=== PATIENT | male | born 1950 | race Caucasian/White ===

== ENCOUNTER → 2018-04-23 | Outpatient (CLI) | payer MEDICARE, BC ==
[2018-04-23 17:24] LABS: Anisocytosis Moderate; Basophils % (A) 0 %; Eosinophils # (A) 0.1 k/uL (0-0.7); Eosinophils % (A) 1 %; HCT 26.3 % (39.0-53.0); HGB 8.6 gm/dL (13.0-17.5); Hypochromasia Slight; Lymphocytes # (A) 1.5 k/uL (1.0-4.8); Lymphocytes % (A) 20 %; MCH 34.1 pg (25.0-35.0); MCHC 32.5 g/dL (31.0-37.0); MCV 104.9 fL (80.0-100.0); Macrocytosis Marked; Mean Platelet Volume 8.1; Monocytes % (A) 13 %; Neutrophils # (A) 4.6 k/uL (1.3-7.7); Neutrophils % (A) 62 %; Platelet Count 254 k/uL (150-450); Poikilocytosis Slight; RBC 2.51 m/uL (4.30-5.90); RDW 22.2 % (11.5-15.5); WBC 7.4 k/uL (3.8-10.6)
[2018-04-23 17:58] LABS: Large Platelets Present; Poikilocytosis (M) Present; Polychromasia Present
[2018-04-23 17:59] LABS: Ovalocytes Present
[2018-04-24 02:57] LABS: Albumin 4.2 g/dL (3.80-4.90); Anion Gap 8.2 mmol/L (4.00-12.00); Calcium 8.6 mg/dL (8.7-10.3); Carbon Dioxide 28.8 mmol/L (21.6-31.8); Globulin 1.4 g/dL (1.6-3.3); Potassium 4.2 mmol/L (3.5-5.5); Total Bilirubin 1.4 mg/dL (0.3-1.2); Total Protein 5.6 g/dL (6.2-8.2)
== END | disposition home or self-care (01) ==
LOC: LABWHC1 15:46
PROVIDERS: ATTEND Internal Medicine Hematology & Oncology
DX: D46.1 Refractory anemia with ring sideroblasts (principal); D46.9 Myelodysplastic syndrome, unspecified; D53.9 Nutritional anemia, unspecified
CPT/HCPCS: 36415; 80053; 85025

== ENCOUNTER → 2018-09-28 | Outpatient (CLI) | payer MEDICARE, BC ==
[2018-09-28 14:32] LABS: ALT 376 U/L (21-72); AST 340 U/L (17-59); African American GFR (CKD) >90 (>60 ml/min/1.73 sqM); Albumin 4.1 g/dL (3.5-5.0); Albumin/Globulin Ratio 1.8; Alkaline Phosphatase 99 U/L (38-126); Anion Gap 7 mmol/L; Blood Urea Nitrogen 13 mg/dL (9-20); Calcium 9.1 mg/dL (8.4-10.2); Carbon Dioxide 27 mmol/L (22-30); Chloride 107 mmol/L (98-107); Globulin 2.3 g/dL; Glucose 102 mg/dL (74-99); Potassium 4.5 mmol/L (3.5-5.1); Sodium 141 mmol/L (137-145); Total Protein 6.4 g/dL (6.3-8.2)
[2018-09-28 14:47] LABS: Anisocytosis Moderate; HCT 22.8 % (39.0-53.0); HGB 7.4 gm/dL (13.0-17.5); Hypochromasia Moderate; MCH 34.6 pg (25.0-35.0); MCHC 32.4 g/dL (31.0-37.0); MCV 106.9 fL (80.0-100.0); Macrocytosis Marked; Mean Platelet Volume 8.3; Platelet Count 280 k/uL (150-450); Poikilocytosis Moderate; RBC 2.13 m/uL (4.30-5.90); RDW 22.4 % (11.5-15.5); WBC 6.4 k/uL (3.8-10.6)
[2018-09-28 16:27] LABS: Band Neutrophils % 5 %; Large Platelets Present; Monocytes # (M) 1.34 k/uL (0-1.0); Myelocytes # (M) 0.19 k/uL (0); Myelocytes % 3 %; Neutrophils % (M) 58 %; Nucleated Red Blood Cells 0 /100 WBC (0-0); Poikilocytosis (M) Present; Polychromasia Present; Total Cells Counted 200
== END | disposition home or self-care (01) ==
LOC: LABWHC1 13:56
PROVIDERS: ATTEND Internal Medicine Hematology & Oncology
DX: D64.9 Anemia, unspecified (principal)
CPT/HCPCS: 36415; 80053; 85025

== ENCOUNTER → 2018-09-29 | Outpatient (CLI) | payer MEDICARE, BC ==
[2018-09-30 00:36] LABS: Hepatitis A Antibody IgM Non-Reactive (Non-Reactive); Hepatitis B Core IgM Non-Reactive (Non-Reactive)
== END | disposition home or self-care (01) ==
LOC: LABWHC1 15:17
PROVIDERS: ATTEND Physician Assistant
DX: R74.8 Abnormal levels of other serum enzymes (principal)
CPT/HCPCS: 36415; 80074

== ENCOUNTER → 2020-09-13 | Outpatient (CLI) | payer MEDICARE, BC ==
[2020-09-13 12:33] LABS: Anisocytosis Moderate; HCT 22.2 % (39.0-53.0); MCH 32.2 pg (25.0-35.0); MCHC 34.1 g/dL (31.0-37.0); MCV 94.5 fL (80.0-100.0); Macrocytosis Slight; Mean Platelet Volume 10.6; Poikilocytosis Slight; RBC 2.35 m/uL (4.30-5.90); RDW 21.7 % (11.5-15.5)
[2020-09-13 12:40] LABS: Partial Thromboplastin Time 22.1 sec (22.0-30.0); Prothrombin Time 10.9 sec (9.0-12.0)
[2020-09-13 12:47] LABS: ALT 47 U/L (4-49); AST 39 U/L (17-59); African American GFR (CKD) >90 (>60 ml/min/1.73 sqM); Albumin 3.4 g/dL (3.5-5.0); Albumin/Globulin Ratio 1.5; Alkaline Phosphatase 58 U/L (38-126); Anion Gap 3 mmol/L; Blood Urea Nitrogen 15 mg/dL (9-20); Calcium 8.7 mg/dL (8.4-10.2); Carbon Dioxide 31 mmol/L (22-30); Chloride 104 mmol/L (98-107); Globulin 2.3 g/dL; Glucose 102 mg/dL (74-99); LDH 520 U/L (313-618); Non-African American GFR(CKD) >90 (>60 ml/min/1.73 sqM); Potassium 4.6 mmol/L (3.5-5.1); Sodium 138 mmol/L (137-145); Total Bilirubin 2.4 mg/dL (0.2-1.3); Total Protein 5.7 g/dL (6.3-8.2)
[2020-09-13 12:48] LABS: HGB 7.6 gm/dL (13.0-17.5)
[2020-09-13 13:42] LABS: Platelet Count 21 k/uL (150-450)
[2020-09-13 13:55] LABS: WBC 0.8 k/uL (3.8-10.6)
[2020-09-14 16:17] LABS: Iron 127 ug/dL (65-175); Total Iron Binding Capacity 193 ug/dL (228-460)
[2020-09-14 16:53] LABS: Ferritin 2500.2 ng/mL (22.0-322.0); Folate, Serum >24.0 ng/mL
== END | disposition home or self-care (01) ==
LOC: LABWHC1 10:53
PROVIDERS: ATTEND Internal Medicine Hematology & Oncology
DX: I10 Essential (primary) hypertension (principal); D46.1 Refractory anemia with ring sideroblasts; E53.8 Deficiency of other specified B group vitamins; E80.7 Disorder of bilirubin metabolism, unspecified
CPT/HCPCS: 36415; 80053; 82607; 82668; 82728; 82746; 83010; 83540; 83550; 83615; 85025; 85610; 85730

== ENCOUNTER → 2020-10-11 | Outpatient (CLI) | payer MEDICARE, BC ==
[2020-10-11 11:29] LABS: ALT 69 U/L (4-49); AST 59 U/L (17-59); African American GFR (CKD) >90 (>60 ml/min/1.73 sqM); Albumin 3.6 g/dL (3.5-5.0); Albumin/Globulin Ratio 1.5; Alkaline Phosphatase 60 U/L (38-126); Anion Gap 4 mmol/L; Blood Urea Nitrogen 13 mg/dL (9-20); Calcium 8.7 mg/dL (8.4-10.2); Carbon Dioxide 31 mmol/L (22-30); Chloride 105 mmol/L (98-107); Globulin 2.4 g/dL; Glucose 110 mg/dL (74-99); Non-African American GFR(CKD) >90 (>60 ml/min/1.73 sqM); Potassium 4.7 mmol/L (3.5-5.1); Sodium 140 mmol/L (137-145); Total Bilirubin 2.3 mg/dL (0.2-1.3)
[2020-10-11 11:35] LABS: Anisocytosis Moderate; Basophils % (A) 0 %; Eosinophils % (A) 1 %; HCT 26.5 % (39.0-53.0); HGB 8.9 gm/dL (13.0-17.5); Lymphocytes # (A) 0.7 k/uL (1.0-4.8); Lymphocytes % (A) 37 %; MCH 34.5 pg (25.0-35.0); MCHC 33.6 g/dL (31.0-37.0); Macrocytosis Marked; Mean Platelet Volume 10.7; Monocytes % (A) 2 %; Neutrophils # (A) 1.1 k/uL (1.3-7.7); Neutrophils % (A) 58 %; Poikilocytosis Slight; RBC 2.58 m/uL (4.30-5.90); WBC 1.8 k/uL (3.8-10.6)
[2020-10-11 11:46] LABS: MCV 102.7 fL (80.0-100.0)
[2020-10-11 12:05] LABS: Platelet Count 27 k/uL (150-450)
== END | disposition home or self-care (01) ==
LOC: LABWHC1 10:31
PROVIDERS: ATTEND Internal Medicine Hematology & Oncology
DX: D46.1 Refractory anemia with ring sideroblasts (principal); E53.8 Deficiency of other specified B group vitamins; E80.7 Disorder of bilirubin metabolism, unspecified; I10 Essential (primary) hypertension
CPT/HCPCS: 36415; 80053; 85025

== ENCOUNTER → 2020-10-18 | Outpatient (CLI) | payer MEDICARE, BC ==
[2020-10-18 11:15] LABS: Anisocytosis Marked; HCT 25.2 % (39.0-53.0); HGB 8.5 gm/dL (13.0-17.5); Hypochromasia Slight; MCH 36.3 pg (25.0-35.0); MCHC 33.6 g/dL (31.0-37.0); Macrocytosis Marked; Mean Platelet Volume 10.7; Platelet Count 37 k/uL (150-450); Poikilocytosis Moderate; RBC 2.33 m/uL (4.30-5.90); Reticulocyte % 11.9 % (0.5-2.0)
[2020-10-18 11:24] LABS: RDW 25.5 % (11.5-15.5)
[2020-10-18 11:44] LABS: Polychromasia Present
[2020-10-18 11:58] LABS: WBC 0.9 k/uL (3.8-10.6)
[2020-10-18 21:02] LABS: % Iron Saturation 42.24 (15.00-50.00); ALT 45 U/L (10-49); AST 35 U/L (14-35); African American GFR (CKD) 103.4 (60.0-200.0); Alkaline Phosphatase 71 U/L (41-126); BUN/Creat Ratio 13.75 Ratio (12.00-20.00); Calcium 8.3 mg/dL (8.7-10.3); Carbon Dioxide 30.1 mmol/L (21.6-31.8); Chloride 108 mmol/L (96-109); Glucose 103 mg/dL (70-110); Iron 98 ug/dL (65-175); LDH 243 U/L (120-246); Non-African American GFR(CKD) 89.2 (60.0-200.0); Potassium 4.8 mmol/L (3.5-5.5); Sodium 140 mmol/L (135-145); Total Bilirubin 2.4 mg/dL (0.2-1.2); Total Iron Binding Capacity 232 ug/dL (228-460); Total Protein 5.8 g/dL (6.2-8.2)
[2020-10-18 22:45] LABS: Ferritin 2680.9 ng/mL (22.0-322.0); Folate, Serum >24.0 ng/mL
== END | disposition home or self-care (01) ==
LOC: LABWHC1 10:07
PROVIDERS: ATTEND Internal Medicine Hematology & Oncology
DX: E53.8 Deficiency of other specified B group vitamins (principal); E80.7 Disorder of bilirubin metabolism, unspecified; D46.1 Refractory anemia with ring sideroblasts; I10 Essential (primary) hypertension
CPT/HCPCS: 36415; 80053; 82607; 82668; 82728; 82746; 83010; 83540; 83550; 83615; 85025; 85045

== ENCOUNTER → 2020-10-25 | Outpatient (CLI) | payer MEDICARE, BC ==
[2020-10-25 17:54] LABS: Basophils # (A) 0.01 X 10*3/uL (0.00-0.10); Basophils % (A) 1.3 %; Eosinophils # (A) 0.01 X 10*3/uL (0.04-0.35); Eosinophils % (A) 1.3 %; HCT 30.2 % (39.6-50.0); HGB 10.1 g/dL (13.0-17.0); Lymphocytes # (A) 0.52 X 10*3/uL (0.90-5.00); Lymphocytes % (A) 67.5 %; MCH 35.8 pg (27.0-32.0); MCHC 33.4 g/dL (32.0-37.0); MCV 107.1 fL (80.0-97.0); Macrocytosis (M) 2+; Mean Platelet Volume 9.9 fL (9.5-12.2); Monocytes # (A) 0.03 X 10*3/uL (0.20-1.00); Monocytes % (A) 3.9 %; Platelet Count 69 X 10*3/uL (140-440); RBC 2.82 X 10*6/uL (4.40-5.60); RDW 23.9 % (11.5-14.5); WBC 0.77 X 10*3/uL (4.50-10.00)
[2020-10-25 23:28] LABS: African American GFR (CKD) 98.5 (60.0-200.0); Albumin 3.9 g/dL (3.80-4.90); Albumin/Globulin Ratio 1.77 (1.60-3.17); Anion Gap 10.1 mmol/L (4.00-12.00); BUN/Creat Ratio 18.89 Ratio (12.00-20.00); Calcium 8.2 mg/dL (8.7-10.3); Carbon Dioxide 23.9 mmol/L (21.6-31.8); Globulin 2.2 g/dL (1.6-3.3); Potassium 4.6 mmol/L (3.5-5.5); Total Bilirubin 2.5 mg/dL (0.2-1.2); Total Protein 6.1 g/dL (6.2-8.2)
== END | disposition home or self-care (01) ==
LOC: LABWHC1 09:08
PROVIDERS: ATTEND Internal Medicine Hematology & Oncology
DX: E53.8 Deficiency of other specified B group vitamins (principal); E80.7 Disorder of bilirubin metabolism, unspecified; D46.1 Refractory anemia with ring sideroblasts; I10 Essential (primary) hypertension
CPT/HCPCS: 36415; 80053; 85025